=== PATIENT | female | born 2005 | race Asian ===

== ENCOUNTER 2023-06-06 18:46 | Emergency (ER) | payer OTHER ==
[2023-06-06 19:19] VITALS: BP 135/91; PULSE 74; RESP 18; TEMP 97.7
--- NOTE | 2023-06-06 19:44 | XR ---
EXAMINATION TYPE: XR foot complete LT DATE OF EXAM: 06/06/2023 7:38 PM CLINICAL INDICATION:Female, 17 years old with history of pain; COMPARISON: None TECHNIQUE: The left foot was examined in the AP, oblique, and lateral projections. FINDINGS: No evidence of any acute osseous pathology. No evidence of soft tissue swelling. Joints are preserve d. IMPRESSION: No evidence of acute fracture.
--- NOTE | 2023-06-06 20:12 | ED ---
General Adult HPI - General Chief complaint: Extremity Injury, Lower Stated complaint: L Foot Injury, During Soccer Warm-Ups Time Seen by Provider: 06/06/23 20:00 Source: patient Mode of arrival: ambulatory Limitations: no limitations - History of Present Illness Initial comments: 17-year-old female presented to the ED with a chief complaint of left foot injury. Patient states that she was playing soccer and running when she heard a pop in her left foot. Now notes pain of her left foot worse with ambulation. Denies any other injury at this time. Patient notes that she has been able to ambulate since. Denies chest pain or shortness of breath. No other complaints. - Related Data Allergies Allergy/AdvReac Type Severity Reaction Status Date / Time No Known Allergies Allergy Verified 06/06/23 19:17 Review of Systems ROS Statement: Those systems with pertinent positive or pertinent negative responses have been documented in the HPI. ROS Other: All systems not noted in ROS Statement are negative. Past Medical History Past Medical History: No Reported History History of Any Multi-Drug Resistant Organisms: None Reported Past Surgical History: No Surgical Hx Reported Past Psychological History: No Psychological Hx Reported Smoking Status: Never smoker Past Alcohol Use History: Rare Past Drug Use History: None Reported General Exam Limitations: no limitations General appearance: alert, in no apparent distress Eye exam: Present: normal appearance Neck exam: Present: normal inspection Respiratory exam: Present: normal lung sounds bilaterally Cardiovascular Exam: Present: regular rate, normal rhythm Extremities exam: Present: other (Strength and Sensation intact of bilateral lower extremities. DP/PT pulses 2+. Able to ambulate without significant difficulty.) Neurological exam: Present: alert, oriented X3 Skin exam: Present: warm, dry Course Vital Signs 06/06/23 19:15 Temperature 97.7 F Pulse Rate 74 Respiratory 18 Rate Blood Pressure 135/91 O2 Sat by Pulse 977 H Oximetry Medical Decision Making - Medical Decision Making Was pt. sent in by a medical professional or institution (, PA, SALESPERSON [employer]EWELRY, urgent care, hospital, or [place] [facility] facility...) When possible be specific @ -No Did you speak to anyone other than the patient for history (EMS, parent, family, police, friend...)? What history was obtained from this source @ -No Did you review nursing and triage notes (agree or disagree)? Why? @ -I reviewed and agree with nursing and triage notes Were old charts reviewed (outside hosp., previous admission, EMS record, old EKG, old radiological studies, urgent care reports/EKG's, [place] [facility] records)? Report findings @ -No old charts were reviewed Differential Diagnosis (chest pain, altered mental status, abdominal pain women, abdominal pain men, vaginal bleeding, weakness, fever, dyspnea, syncope, headache, dizziness, GI bleed, back pain, seizure, CVA, palpatations, mental health, musculoskeletal)? @ -Differential Musculoskeletal Muscular strain, contusion, ligament sprain, fracture, arthritis, septic arthritis, bursitis, cellulitis, muscle spasm, nerve compression, DVT, arterial occlusion, herpes zoster, electrolyte abnormality, tumor.... This is not meant to be in all inclusive list EKG interpreted by me (3pts min.). @ -None X-rays interpreted by me (1pt min.). @ - X-ray of The foot interpreted by me shows no acute findings. CT interpreted by me (1pt min.). @ -None done U/S interpreted by me (1pt. min.). @ -None done What testing was considered but not performed or refused? (CT, X-rays, U/S, labs)? Why? @ -None What meds were considered but not given or refused? Why? @ -None Did you discuss the management of the patient with other professionals (professionals i.e. , PA, SALESPERSON [employer]EL[employer], lab, RT, psych nurse, foster care social worker, in flight refueling manager, teacher, building drafting officer, field nurse case manager)? Give summary @ -No Was smoking cessation discussed for >3mins.? @ -No Was critical care preformed (if so, how long)? @ -No Were there social determinants of health that impacted care today? How? (Homelessness, low income, unemployed, alcoholism, drug addiction, transportation, low edu. Level, literacy, decrease access to med. care, residential, rehab)? @ -No Was there de-escalation of care discussed even if they declined (Discuss DNR or withdrawal of care, Hospice)? DNR status @ -No What co-morbidities impacted this encounter? (DM, HTN, Smoking, COPD, CAD, Cancer, CVA, ARF, Chemo, Hep., AIDS, mental health diagnosis, sleep apnea, morbid obesity)? @ -None Was patient admitted / discharged? Hospital course, mention meds given and route, prescriptions, significant lab abnormalities, going to OR and other pertinent info. @ -Discharge 17-year-old female presenting to the ED s/p injury to her foot. Imaging shows no acute findings. Exam shows patient able to ambulate without significant difficulties with strength and sensation intact. Symptoms likely musculoskeletal in nature. Patient offered walking shoe however patient declined. Also offered analgesics however patient declined. Advised supportive care and follow-up with PCP. Discharged home in stable condition. Undiagnosed new problem with uncertain prognosis? @ -No Drug Therapy requiring intensive monitoring for toxicity (Heparin, Nitro, Insulin, Cardizem)? @ -No Were any procedures done? @ -No Diagnosis/symptom? @ -Foot sprain Acute, or Chronic, or Acute on Chronic? @ -Acute Uncomplicated (without systemic symptoms) or Complicated (systemic symptoms)? @ -Uncomplicated Side effects of treatment? @ -No Exacerbation, Progression, or Severe Exacerbation? @ -No Poses a threat to life or bodily function? How? (Chest pain, [place], [place], pneumonia, PE, COPD, DKA, ARF, appy, cholecystitis, CVA, Diverticulitis, Homicidal, Suicidal, threat to staff... and all critical care pts) @ -No Disposition Clinical Impression: Left foot pain Disposition: HOME SELF-CARE Condition: Good Instructions (If sedation given, give patient instructions): Foot Sprain (ED) Additional Instructions: Please return to the Emergency Department if symptoms worsen or any other concerns. Please follow-up with PCP. Is patient prescribed a controlled substance at d/c from ED?: No Referrals: Socorro Oropeza DO [Primary Care Provider] - 1-2 days Time of Disposition: 20:12
== END 2023-06-06 20:33 | disposition home or self-care (01) ==
LOC: EC 18:46
DX: S93.602A Unspecified sprain of left foot, initial encounter (principal); X50.1XXA Overexertion from prolonged static or awkward postures, initial encounter; Y93.66 Activity, soccer
CPT/HCPCS: 99283